=== PATIENT | male | born 1985 | race Caucasian/White ===

== ENCOUNTER 2019-10-28 00:43 | Emergency (ER) | payer BC ==
[~2019-10-28] VITALS: Ht 182.9 cm; Wt 99.8 kg
[2019-10-28 01:10] VITALS: BP_SYST 159
--- NOTE | 2019-10-28 01:37 | NUR ---
Pt ambulatory to bed hallway for evaluation
--- NOTE | 2019-10-28 01:38 | NUR ---
Patient AAO x 4 ambulates to ER bed H1 with complaints of 8/10 sore throat with difficulty swallowing, cough, and congestion that began on Monday but worsened on Monday. He was seen by another provider for similar plus headache on Monday and given Tamiflu. Headache has subsided, but sore throat persists. Even chest rise and fall with respirations. Will continue to monitor.
--- NOTE | 2019-10-28 01:40 | NUR ---
ER Dr. Brock at bedside examining patient.
[2019-10-28] MEDS ORDERED: DEXAMETHASONE SOD PHOSPHATE 10 MG/ML VIAL IM ONE (01:45)
--- NOTE | 2019-10-28 03:52 | NUR ---
Patient given written and verbal discharge instructions and verbalizes understanding. ER MD Brock discussed with patient the results and treatment provided. Patient in stable condition. ID arm band removed. Rx of Motrin given. Patient educated on pain management and to follow up with PMD. Pain Scale 0. Opportunity for questions provided and answered. Medication side effect fact sheet provided.
[2019-10-28 03:54] VITALS: BP_SYST 144
== END 2019-10-28 03:52 | disposition home or self-care (01) ==
LOC: SED 00:43
DX: J02.9 Acute pharyngitis, unspecified (principal)
CPT/HCPCS: 36415; 86403; 87081; 96372; 99283; J1100